=== PATIENT | male | born 1965 | race Caucasian/White ===

== ENCOUNTER 2018-09-22 17:06 | Emergency (ER) | payer BC ==
[2018-09-22] MEDS ORDERED: DIAZEPAM 5 MG TAB PO ONE (17:25)
--- NOTE | 2018-09-22 17:29 | EDPHY ---
H & P Stated Complaint: lbp spasms since yesterday after getting out of car. Time Seen by Provider: 09/22/18 17:18 HPI/ROS: CHIEF COMPLAINT: Low back pain HISTORY OF PRESENT ILLNESS: Patient is a 52-year-old [employer] who comes to the emergency department complaining of low back pain. He does not remember injuring it but yesterday developed some tightness in bilateral lumbar region. It hurts with movement and bending. No weakness or numbness. No bowel or bladder abnormalities. No paresthesias. No radiation to his legs. No recent fevers or infections. Severity: Severe Modifying factors: Movement REVIEW OF SYSTEMS: Constitutional: denies: chills, fever, recent illness, recent injury EENTM: denies: blurred vision, double vision, nose congestion Respiratory: denies: cough, shortness of breath Cardiac: denies: chest pain, irregular heart rate, lightheadedness, palpitations Gastrointestinal/Abdominal: denies: abdominal pain, diarrhea, nausea, vomiting, blood streaked stools Genitourinary: denies: dysuria, frequency, hematuria, pain Musculoskeletal: See HPI Skin: denies: lesions, rash, jaundice, bruising Neurological: denies: headache, numbness, paresthesia, tingling, dizziness, weakness Hematologic/Lymphatic: denies: blood clots, easy bleeding, easy bruising Immunologic/allergic: denies: HIV/AIDS, transplant 10 systems reviewed and negative except as noted EXAM: GENERAL: Well-appearing, well-nourished and in no acute distress. HEAD: Atraumatic, normocephalic. EYES: Pupils equal round and reactive to light, extraocular movements intact, sclera anicteric, conjunctiva are normal. ENT: TMs normal, nares patent, oropharynx clear without exudates. Moist mucous membranes. NECK: Normal range of motion, supple without lymphadenopathy or JVD. LUNGS: Breath sounds clear to auscultation bilaterally and equal. No wheezes rales or rhonchi. HEART: Regular rate and rhythm without murmurs, rubs or gallops. ABDOMEN: Soft, nontender, normoactive bowel sounds. No guarding, no rebound. No masses appreciated. BACK: Bilateral paraspinous muscle pain in the lumbar region, in moderate improvement with massage. Worsened by movement. No bony tenderness or step- offs. No radiation. EXTREMITIES: Normal range of motion, no pitting or edema. No clubbing or cyanosis. NEUROLOGICAL: Cranial nerves II through XII grossly intact. Normal speech, normal gait. 5/5 strength, normal movement in all extremities, normal sensation , normal reflexes PSYCH: Normal mood, normal affect. SKIN: Warm, dry, normal turgor, no visible rashes or lesions. Source: Patient Exam Limitations: No limitations - Personal History Current Tetanus Diphtheria and Acellular Pertussis (TDAP): Yes Tetanus Vaccine Date: < 10 YEARS - Medical/Surgical History Hx Asthma: No Hx Chronic Respiratory Disease: No Hx Diabetes: No Hx Cardiac Disease: No Hx Renal Disease: No Hx Cirrhosis: No Hx Alcoholism: No Hx HIV/AIDS: No Hx Splenectomy or Spleen Trauma: No Other PMH: Addisons. hypothyroid - Family History Significant Family History: No pertinent family hx - Social History Smoking Status: Heavy smoker Alcohol Use: Sober Drug Use: None Constitutional: Initial Vital Signs Temperature (C) 36.8 C 09/22/18 17:14 Heart Rate 62 09/22/18 17:14 Respiratory Rate 16 09/22/18 17:14 Blood Pressure 166/108 H 09/22/18 17:14 O2 Sat (%) 97 09/22/18 17:14 O2 Delivery Mode Room Air Allergies/Adverse Reactions: latex Allergy (Verified 09/22/18 17:14) Home Medications: Medication Instructions Recorded Calcium 11/29/14 Effexor Xr 11/29/14 Florinef 11/29/14 Hydrocortisone 11/29/14 Levothyroxine 11/29/14 Vitamin D3 11/29/14 Cortef 09/22/18 Diazepam [Valium 5 MG (*)] 5 mg PO TID PRN #10 tab 09/22/18 Medical Decision Making - Diagnostics Imaging Results: Imaging Impressions Lumbar Spine X-Ray 09/22/18 17:24 Impression: 1. Mild scoliosis suggest muscle spasm. 2. L5-S1 and L4-L5 degenerative disk disease. Imaging: Discussed imaging studies w/ banquet server on call Radiologist ED Course/Re-evaluation: 6:20 p.m. We discussed the x-ray results. The patient is feeling better with Valium. We discussed core strengthening exercises. He will also speak with physical therapy who he already sees for his shoulder. He also has a masseuse lined up tomorrow. We discussed expected course and symptoms to watch for and indications for returning. Differential Diagnosis: Partial list of the Differential diagnosis considered include but were not limited to; low back strain, radiculopathy and although unlikely based on the history and physical exam, I also considered cauda equina, infection, fracture. I discussed these differential diagnoses and the plan with the patient as well as the usual and expected course. The patient understands that the diagnosis is provisional and that in medicine we are not always correct and that further workup is often warranted. Usual and customary warnings were given. All of the patient's questions were answered. The patient was instructed to return to the emergency department should the symptoms at all worsen or return, otherwise to followup with the physician as we discussed. - Data Points Medications Given: Discontinued Medications Diazepam (Valium) 5 mg PO EDNOW ONE Stop: 09/22/18 17:26 Last Admin: 09/22/18 17:42 Dose: 5 mg Departure - Departure Disposition: Home, Routine, Self-Care Clinical Impression: Low back strain Qualifiers: Encounter type: initial encounter Qualified Code(s): S39.012A - Strain of muscle, fascia and tendon of lower back, initial encounter Condition: Fair Instructions: Low Back Strain (ED), Lower Back Exercises (ED) Referrals: Shaheed Bose MD [Primary Care Provider] - 2-3 days, if not improved Prescriptions: Diazepam [Valium 5 MG (*)] 5 mg PO TID PRN #10 tab PRN Reason: Spasms
[2018-09-22 18:41] VITALS: BP 136/86
== END 2018-09-22 18:45 | disposition home or self-care (01) ==
LOC: CED 17:06
DX: S39.012A Strain of muscle, fascia and tendon of lower back, initial encounter (principal); X50.9XXA Other and unspecified overexertion or strenuous movements or postures, initial encounter; V48.4XXA Person boarding or alighting a car injured in noncollision transport accident, initial encounter
CPT/HCPCS: 72100-PO